=== PATIENT | male | born 1985 | race Two or more races ===

== ENCOUNTER 2019-04-30 12:51 | Emergency (ER) | payer OTHER ==
[~2019-04-30] VITALS: Ht 177.8 cm; Wt 81.6 kg
[2019-04-30 13:14] VITALS: BP 132/87
== END 2019-04-30 14:17 | disposition home or self-care (01) ==
LOC: ER 12:57
DX: S51.812A Laceration without foreign body of left forearm, initial encounter (principal); W26.8XXA Contact with other sharp object(s), not elsewhere classified, initial encounter; Y93.89 Activity, other specified; Y92.89 Other specified places as the place of occurrence of the external cause; Y99.0 Civilian activity done for income or pay
CPT/HCPCS: 12001; 99283; A6403